=== PATIENT | male | born 1955 | race Caucasian/White ===

== ENCOUNTER 2021-04-05 13:30 | Emergency (ER) | payer OTHER, SELFPAY ==
--- NOTE | ~2021-04-05 | XR_ITS ---
XR chest 2V DATE: 04/05/2021 14:06 INDICATION: Shortness of breath and cough for 2 weeks TECHNIQUE: 2 views COMPARISON: None FINDINGS: Normal heart size. No hilar or mediastinal enlargement. No pulmonary infiltrate or consolidation, pleural effusion or pulmonary vascular congestion or pneumo thorax. Degenerative spurring of the thoracic spine. 2 anchor devices are noted at the right humeral head. IMPRESSION: No active cardiopulmonary disease Reviewed, dictated and finalized at location A.
[2021-04-05 13:43] VITALS: BP 177/95; PULSE 98; RESP 20; TEMP 37.3; O2SAT 98
--- NOTE | 2021-04-05 13:51 | ED.GENADULT ---
HPI - General Adult General Chief complaint: Upper Respiratory Infection Stated complaint: Cough,Shortness of breathe Time Seen by Provider: 04/05/21 13:50 Source: patient and RN notes reviewed Mode of arrival: ambulatory Limitations: no limitations History of Present Illness HPI narrative: 65-year-old male presents with complaints of dry cough, congestion, and intermittent shortness of breath for the past 14 days. ?Rayray reports his job sent him here to be evaluated due to the office having several outbreaks of COVID-19 and he has been constantly coughing. ?Cough medication, last prior to bed on 04/04/21 without relief. ?Constant dry cough without chest congestion. ?Rhinorrhea and nasal congestion. ?No ill exposures. Denies sore throat. ?No high fevers, drooling, neck or throat swelling. ?No chest pain or wheezing. ?No exacerbation factors. ?Denies nausea, vomiting, and abdominal pain. ?Tolerating liquids well. ?Remains active. The patient reports he has not been diagnosed with COVID-19. ?The patient reports he is not waiting for the results of a COVID-19 lab test. ?The patient reports he does not have weakness, fatigue, or myalgia. ?The patient reports he does not have any loss of taste or smell and diarrhea. ?Denies recent traveling. ?Denies concerns for COVID-19 or exposures. ?At this time, the patient is not suspected of having COVID-19.?? Some parts of this dictation were generated by voice recognition software and may contain typographical and/or grammatical inaccuracies. Related Data Home Medications Medication Instructions Recorded Confirmed atorvastatin 20 mg PO DAILY 04/05/21 04/05/21 meloxicam 7.5 mg PO DAILY 04/05/21 04/05/21 Allergies Allergy/AdvReac Type Severity Reaction Status Date / Time amlodipine Allergy Unknown Rash Verified 04/05/21 13:48 Review of Systems Review of Systems: CONSTITUTIONAL: Denies fever, chills, sweats. EYES: Denies visual changes, redness, discharge. ENT: Denies rhinorrhea, congestion, sore throat, otalgia. CARDIOVASCULAR: Denies chest pain, palpitations, edema. RESPIRATORY: Denies wheezing. Complaints of dry cough, intermittent dyspnea. GASTROINTESTINAL: Denies abdominal pain, nausea, vomiting, diarrhea. SKIN: Denies rash or itching. MUSCULOSKELETAL: Denies acute back pain, joint pain, or myalgia. NEUROLOGIC: Denies numbness or focal weakness. PSYCHIATRIC: Denies anxiety or depression. All systems reviewed & are unremarkable except as noted in HPI and below. [facility] Past Medical History Medical History (Updated 04/05/21 @ 15:32 by CARIN Barriga) Abdominal hernia Cancer prostate, treated with prostatectomy & radiation Colon polyps Hyperlipidemia Hypertension Internal hemorrhoids Surgical History Surgical History (Updated 04/05/21 @ 15:32 by CARIN Barriga) History of colonoscopy History of prostatectomy Hx of prostatectomy S/P rotator cuff repair Family History Family History Sibling Carcinoma of colon Family history of coronary artery disease Father Malignant neoplasm of prostate Carcinoma of colon Mother Family history of coronary artery disease Other Cerebrovascular accident Family history of arthritis Family history of heart disease in male family member before age 55 Social History Social History (Updated 04/05/21 @ 14:09 by CARIN Barriga) Smoking status: Never smoker Tobacco type: cigarettes Second hand tobacco smoke exposure: Yes Alcohol intake: current Substance use: never Substance use type: does not use Living arrangements: with family Occupation/Education: occupation Gender identity (if verbalized by the patient): Male Sexual Orientation (if Verbalized by the Patient): Straight or Heterosexual Comments At time of signature, agree with the nurse past medical, surgical, social, and family history. There is no relevant family hist
[2021-04-05 14:43] VITALS: BP 180/95
[2021-04-06 20:10] LABS: SARS-CoV-2 RNA PCR Negative
== END 2021-04-05 14:43 | disposition home or self-care (01) ==
PROVIDERS: Emergency Provider Nurse Practitioner Family; PCP Family Medicine
DX: J40 Bronchitis, not specified as acute or chronic (principal); Z20.822 Contact with and (suspected) exposure to COVID-19; E78.5 Hyperlipidemia, unspecified; I10 Essential (primary) hypertension; Z85.46 Personal history of malignant neoplasm of prostate; Z90.79 Acquired absence of other genital organ(s)
CPT/HCPCS: 71046; 87426; 99213; C9803; G0463; U0003; U0005

== ENCOUNTER 2021-11-27 16:49 | Outpatient (CLI) | payer OTHER, SELFPAY ==
--- NOTE | ~2021-11-27 | XR_ITS ---
EXAM: XR knee RT 3V HISTORY: M25.561 - Pain in right knee, worsening pain in the medial and posterior right knee for the last several months, unable to bend past a certain point, no known injury. COMPARISON: None available FINDINGS: Normal mineralization. Mild medial joint space narrowing. Mild tricompartmental osteoarthr itis. Quadriceps and patellar tendon enthesopathy. Vascular calcifications. No large effusion. No fra cture or dislocation. IMPRESSION: No acute osseous finding in the right knee. Degenerative changes described above. Reviewed, dictated and finalized at location K. IMPRESSION: No acute osseous finding in the right knee. Degenerative changes described daina wolff.
[2021-11-27 17:29] LABS: Alanine Aminotransferase 47 U/L (4-50); Albumin Level 4.4 g/dL (3.5-5.1); Alkaline Phosphatase 134 U/L (38-126); Anion Gap 9 mmol/L (8-16); Aspartate Amino Transferase 42 U/L (17-59); Bilirubin,Total 0.6 mg/dL (0.2-1.3); Blood Urea Nitrogen 24 mg/dL (9-20); Calcium 9.1 mg/dL (8.4-10.2); Carbon Dioxide 25 mmol/L (22-30); Chloride 104 mmol/L (98-107); Estimated Glomerular Filt Rate > 60; Glucose 120 mg/dL (65-110); Potassium 3.4 mmol/L (3.4-5.0); Sodium 138 mmol/L (137-145)
[2021-11-27 18:00] LABS: Prostate Specific Antigen < 0.1 ng/mL (< OR = 4.0)
== END 2021-11-27 16:50 | disposition home or self-care (01) ==
LOC: ANHLAB 16:53
PROVIDERS: PCP Family Medicine; Visit Provider Nurse Practitioner Family
DX: E87.6 Hypokalemia (principal); M25.561 Pain in right knee; Z85.46 Personal history of malignant neoplasm of prostate
CPT/HCPCS: 36415; 73562; 80053; 84153

== ENCOUNTER 2022-01-29 00:34 | Day surgery (SDC) | payer OTHER, SELFPAY ==
[2022-01-09 13:40] VITALS: BMI 31.8
--- NOTE | 2022-01-28 09:30 | PM.HPGS ---
History of Present Illness History of Present Illness Consent: Risks, benefits, and alternatives have been discussed and questions answered. Patient agrees to proceed with procedure. Chief complaint: family hx of colon ca, hx of colon polyps Narrative: Rayray Wilder is a 66 year old male with a family history of olon cancer in his father and brother. He has had several polyps in the past. [facility] Past Medical History Medical History Abdominal hernia Cancer prostate, treated with prostatectomy & radiation Colon polyps Hyperlipidemia Hypertension Internal hemorrhoids Obesity Surgical History Surgical History History of colonoscopy History of prostatectomy Hx of prostatectomy S/P rotator cuff repair Family History Family History Sibling Carcinoma of colon Family history of coronary artery disease Father Malignant neoplasm of prostate Carcinoma of colon Mother Family history of coronary artery disease Other Cerebrovascular accident Family history of arthritis Family history of heart disease in male family member before age 55 Social History Social History Smoking status: Never smoker Tobacco type: cigarettes Second hand tobacco smoke exposure: Yes Alcohol intake: current Drinks per week: 3 Substance use: never Substance use type: does not use Living arrangements: with family Gender identity (if verbalized by the patient): Male Sexual Orientation (if Verbalized by the Patient): Straight or Heterosexual Spiritual care concerns: No Meds Home Medications and Allergies Home Medications Medication Instructions Recorded Confirmed Type benzonatate 100 mg capsule 100 mg PO TID #60 caps 04/05/21 01/09/22 Rx atorvastatin 20 mg tablet 20 mg PO DAILY #90 tabs 04/11/21 01/09/22 Rx hydrochlorothiazide 12.5 mg tablet 12.5 mg PO DAILY #90 tabs 05/09/21 01/09/22 Rx valsartan 320 mg tablet 320 mg PO DAILY #90 tabs 08/08/21 01/09/22 Rx Allergies Allergy/AdvReac Type Severity Reaction Status Date / Time amlodipine Allergy Unknown Rash Verified 01/29/22 08:00 Exam Resp: Auscultation: clear to auscultation bilaterally Cardio: Rate: regular rate Rhythm: regular rhythm GI: GI Palp: Yes Soft to palpation and No Tenderness to palpation present (GI) Assessment and Plan Assessment and plan (1) Colon cancer screening: Code(s): Z12.11 - Encounter for screening for malignant neoplasm of colon Status: Acute Assessment and Plan: Colonoscopy with possible biopsy or polypectomy or cautery or injection of substances.
--- NOTE | 2022-01-29 07:58 | P.PNAN_ITS ---
Anes - Initial Pre Proc Eval Procedure: Operation Date: 01/29/22 09:00 Proposed Procedures p Screening Colonoscopy - Zachary Bishop MD Date/Time: 01/29/22 07:58 Surgeon: Zachary Bishop MD Pre Op Diagnosis: family hx of colon ca, hx of colon polyps Patient Data Age: 66 Gender: M Height: 1.75 m Weight: 98 kg Allergies Allergy/AdvReac Type Severity Reaction Status Date / Time amlodipine Allergy Unknown Rash Verified 01/29/22 08:00 Home Medications Medication Instructions Recorded Confirmed Type benzonatate 100 mg capsule 100 mg PO TID #60 caps 04/05/21 01/09/22 Rx atorvastatin 20 mg tablet 20 mg PO DAILY #90 tabs 04/11/21 01/09/22 Rx hydrochlorothiazide 12.5 mg tablet 12.5 mg PO DAILY #90 tabs 05/09/21 01/09/22 Rx valsartan 320 mg tablet 320 mg PO DAILY #90 tabs 08/08/21 01/09/22 Rx Patient hx anesthesia problems: none Family hx anesthesia problems: none Results Review: All pre-operative results and documents have been reviewed as part of the pre-operative evaluation. [facility] Past Medical History Medical History Abdominal hernia Cancer prostate, treated with prostatectomy & radiation Colon polyps Hyperlipidemia Hypertension Internal hemorrhoids Obesity Surgical History Surgical History History of colonoscopy History of prostatectomy Hx of prostatectomy S/P rotator cuff repair Family History Family History Sibling Carcinoma of colon Family history of coronary artery disease Father Malignant neoplasm of prostate Carcinoma of colon Mother Family history of coronary artery disease Other Cerebrovascular accident Family history of arthritis Family history of heart disease in male family member before age 55 Social History Social History Smoking status: Never smoker Tobacco type: cigarettes Second hand tobacco smoke exposure: Yes Alcohol intake: current Drinks per week: 3 Substance use: never Substance use type: does not use Living arrangements: with family Gender identity (if verbalized by the patient): Male Sexual Orientation (if Verbalized by the Patient): Straight or Heterosexual Spiritual care concerns: No Anes - Eval Final PreProcedure Day of Procedure 01/29/22 07:58 Patient weight: obese Heart: regular rate and rhythm Lungs: clear to auscultation and normal air movement Airway: Mallampati scale class II Neurological: alert and oriented Last oral intake: >/= 8 hours ASA classification: III Emergent: no Anesthetic plan: proceed Anesthesia type and monitoring: general GIVS Results Review: All pre-operative results and documents have been reviewed as part of the pre- operative evaluation. Informed Consent: The patient's anesthetic plan and its attendant risks and benefits were discussed with the patient/family/POA. Questions were solicited and answers provided to the satisfaction of the patient/family/POA.
[2022-01-29 08:01] VITALS: BP 154/92; PULSE 80; RESP 18; TEMP 36.3; O2SAT 98; BMI 30.4
[2022-01-29] MEDS: LACTATED RINGERS 1,000 ML 150 ML IV CONT (08:17)
[2022-01-29 08:49] VITALS: BP 103/63; PULSE 70; RESP 25; O2SAT 94
[2022-01-29 08:59] VITALS: BP 105/70; PULSE 65; RESP 18; O2SAT 95
[2022-01-29 09:09] VITALS: BP 126/84; PULSE 64; RESP 18; O2SAT 98
== END 2022-01-29 09:18 | disposition home or self-care (01) ==
PROVIDERS: PCP Family Medicine; Visit Provider Internal Medicine Gastroenterology
PROC: 0DJD8ZZ Inspection of Lower Intestinal Tract, Via Natural or Artificial Opening Endoscopic (ICD-10-PCS; CPT 45378; principal; 2022-01-29 09:00)
DX: Z12.11 Encounter for screening for malignant neoplasm of colon (principal); K57.30 Diverticulosis of large intestine without perforation or abscess without bleeding; K64.4 Residual hemorrhoidal skin tags; K64.8 Other hemorrhoids; K63.5 Polyp of colon; Z80.0 Family history of malignant neoplasm of digestive organs; Z85.46 Personal history of malignant neoplasm of prostate; Z92.3 Personal history of irradiation; Z90.79 Acquired absence of other genital organ(s); I10 Essential (primary) hypertension; E78.5 Hyperlipidemia, unspecified; E66.9 Obesity, unspecified; Z68.30 Body mass index [BMI] 30.0-30.9, adult
CPT/HCPCS: 45385; 45381; 88305; J2704; J7120

== ENCOUNTER 2022-12-21 09:57 | Outpatient (CLI) | payer MEDICARE, SELFPAY ==
[2022-12-21 11:05] LABS: Hematocrit 43.5 % (42.0-52.0); Hemoglobin 14.5 g/dL (14.0-18.0); Mean Corpuscular HGB Conc 33.3 g/dl (32-36); Mean Corpuscular Hemoglobin 30.2 pg (26-34); Mean Corpuscular Volume 90.6 fl (80-100); Mean Platelet Volume 9.9 fl (7.4-10.4); Platelet Count Result 323 k/mm3 (150-375); Red Cell Distribution Width 12.8 % (11.5-14.5)
[2022-12-21 11:12] LABS: Alanine Aminotransferase 75 U/L (6-50); Albumin Level 4.4 g/dL (3.5-5.1); Alkaline Phosphatase 104 U/L (38-126); Anion Gap 9 mmol/L (8-16); Aspartate Amino Transferase 48 U/L (17-59); Bilirubin,Total 0.7 mg/dL (0.2-1.3); Blood Urea Nitrogen 17 mg/dL (9-20); Calcium 8.7 mg/dL (8.4-10.2); Carbon Dioxide 28 mmol/L (22-30); Chloride 103 mmol/L (98-107); Cholesterol 242 mg/dL (0-200); Estimated Glomerular Filt Rate > 60; Glucose 98 mg/dL (65-110); HDL Direct 35 mg/dL; Potassium 3.6 mmol/L (3.4-5.0); Sodium 140 mmol/L (137-145); Triglycerides 221 mg/dL (<150)
[2022-12-21 11:23] LABS: LDL Cholesterol Direct 160 mg/dL
[2022-12-21 11:34] LABS: Appearance Urine Cloudy (Clear); Bacteria Urine None Seen /hpf; Bilirubin Urine Negative (Negative); Blood Urine Negative (Negative); Color Urine Dark Yellow (Yellow); Glucose Urine UA Negative (Negative); Ketones Urine Trace mg/dL (Negative); Leukocyte Esterase Ur Negative LEU/UL (NEGATIVE); Need Manual Microscopic Reviewed; Nitrate Urine Negative (Negative); Protein Urine Trace mg/dL (Negative); RBC Urine 0-2 /hpf (0-2); Specific Grav Ur 1.025 (1.001-1.035); Squamous Epithelial Cell Urine Occasional /hpf (Few); WBC Urine 0-5 /hpf (0-3); pH Urine 5.5 (5.0-9.0)
[2022-12-21 11:36] LABS: Add Urine Microscopic? YES
== END 2022-12-21 09:58 | disposition home or self-care (01) ==
PROVIDERS: PCP Family Medicine; Visit Provider Physician Assistant
DX: C80.1 Malignant (primary) neoplasm, unspecified (principal); E78.5 Hyperlipidemia, unspecified; I10 Essential (primary) hypertension; Z85.46 Personal history of malignant neoplasm of prostate; E66.9 Obesity, unspecified
CPT/HCPCS: 36415; 80053; 80061; 81001; 84443; 85027

== ENCOUNTER 2024-02-13 12:09 | Outpatient (CLI) | payer MEDICARE, SELFPAY ==
[2024-02-13 13:00] LABS: Basophils Absolute Auto 0.1 K/mm3 (0.0-0.1); Basophils Percent Auto 0.9 % (0.2-1.2); Eosinophils Absolute Auto 0.1 K/mm3 (0-0.3); Eosinophils Percent Auto 1.7 % (0-4.4); Hematocrit 44.4 % (42.0-52.0); Hemoglobin 14.7 g/dL (14.0-18.0); Immature Granulocyte Absolute 0.02 K/mm3 (0.00-0.031); Immature Granulocyte Percent A 0.2 % (0-0.5); Lymphocytes Absolute Auto 1.53 K/mm3 (0.9-3.2); Lymphocytes Percent Auto 18.8 % (18.3-44.2); Mean Corpuscular HGB Conc 33.1 g/dl (32-36); Mean Corpuscular Hemoglobin 29.4 pg (26-34); Mean Corpuscular Volume 88.8 fl (80-100); Mean Platelet Volume 9.7 fl (7.4-10.4); Monocytes Absolute Auto 0.8 K/mm3 (0.1-0.6); Monocytes Percent Auto 10.1 % (2.6-8.5); Neutrophils Absolute Auto 5.6 K/mm3 (1.3-6.7); Neutrophils Percent Auto 68.3 % (45.5-73.1); Platelet Count Result 310 k/mm3 (150-375); Red Cell Distribution Width 12.7 % (11.5-14.5); White Blood Count 8.2 K/mm3 (4.5-10.0)
[2024-02-13 13:44] LABS: Alanine Aminotransferase 42 U/L (6-50); Albumin Level 4.4 g/dL (3.5-5.1); Alkaline Phosphatase 128 U/L (38-126); Anion Gap 9 mmol/L (4-12); Aspartate Amino Transferase 37 U/L (17-59); Bilirubin,Total 0.7 mg/dL (0.2-1.3); Blood Urea Nitrogen 19 mg/dL (9-20); Carbon Dioxide 26 mmol/L (22-30); Chloride 106 mmol/L (98-107); Cholesterol 205 mg/dL (0-200); Estimated Glomerular Filt Rate > 60; Glucose 103 mg/dL (65-110); HDL Direct 46 mg/dL; Sodium 141 mmol/L (137-145); Triglycerides 206 mg/dL (<150)
[2024-02-13 13:55] LABS: LDL Cholesterol Direct 124 mg/dL
[2024-02-13 14:12] LABS: Hemoglobin A1C 5.5 % (<5.7)
[2024-02-13 14:15] LABS: Prostate Specific Antigen < 0.1 ng/mL (< OR = 4.0)
[2024-02-13 15:17] LABS: Appearance Urine Cloudy (Clear); Bacteria Urine None Seen /hpf; Bilirubin Urine 1+ (Negative); Blood Urine Negative (Negative); Color Urine Dark Yellow (Yellow); Glucose Urine UA Negative (Negative); Ketones Urine Trace mg/dL (Negative); Leukocyte Esterase Ur Negative LEU/UL (Negative); Mucus Urine Present /lpf; Need Manual Microscopic Reviewed; Nitrate Urine Negative (Negative); Non Pathogenic Casts >20; Protein Urine 1+ mg/dL (Negative); RBC Urine 0-2 /hpf (0-2); Squamous Epithelial Cell Urine Occasional /hpf (Few); WBC Urine 0-5 /hpf (0-3)
[2024-02-13 15:34] LABS: Add Urine Microscopic? YES; Specific Grav Ur 1.038 (1.001-1.035)
== END 2024-02-13 12:10 | disposition home or self-care (01) ==
PROVIDERS: PCP Family Medicine; Visit Provider Physician Assistant Medical
DX: E78.5 Hyperlipidemia, unspecified (principal); I10 Essential (primary) hypertension; E66.9 Obesity, unspecified; R73.01 Impaired fasting glucose; Z85.46 Personal history of malignant neoplasm of prostate; Z12.5 Encounter for screening for malignant neoplasm of prostate
CPT/HCPCS: 36415; 80053; 80061; 81001; 83036; 84153; 84443; 85025

== ENCOUNTER 2025-05-21 09:13 | Outpatient (CLI) | payer MEDICARE, SELFPAY ==
--- OUTSIDE RECORDS SUMMARY | 2025-05-21 09:23 | XMS_ITS | Encounter Summary ---
Author Organization [facility] Address [address] [place] [address] Care Team Providers Care Stitcher Feeder Name Role Phone Reese Walker MD Primary Care Provider [phone] Encounter Details Date Type Department Care Team (Latest Contact Info) Description 05/01/2007 Outpatient Historical HIS [facility] Hernandez, Reese Kamara MD NO ADDRESS ON FILE Unspecified Osteomyelitis, Hand (CMS/[facility]) (Primary Dx) Social History Tobacco Use Types Packs/Day Years Used Date Smoking Tobacco: Never Assessed Sex and Gender Information Value Date Recorded Sex Assigned at Not on file Legal Sex Male 3:59 AM HEAD RESIDENT Gender Identity Not on file Sexual Orientation Not on file documented as of this encounter Plan of Treatment Not on file documented as of this encounter Procedures Procedure Name Priority Date/Time Associated Diagnosis Comments CBC WITH DIFFERENTIAL Routine 05/01/2007 2:01 PM CDT CBC WITH DIFFERENTIAL Routine 05/01/2007 2:01 PM CDT COMPREHENSIVE METABOLIC PANEL Routine 05/01/2007 2:01 PM CDT documented in this encounter Results * CBC WITH DIFFERENTIAL (05/01/2007 2:01 PM CDT) NEUTROPHILS 54 45 - 70 % INTERFAC E SYSTEM LYMPHOCYTES 30 16 - 45 % INTERFAC E SYSTEM MONOCYTES 12 3 - 13 % INTERFACE SYSTEM EOSINOPHILS 3 0 - 7 % INTERFAC E SYSTEM BASOPHILS 1 0 - 2 % INTERFACE SYSTEM NEUTROPHIL ABSOLUTE 3.20 1.90 - 7.00 K/uL INTERFACE SYSTEM LYMPHOCYTE ABSOLUTE 1.79 0.70 - 4.50 K/uL INTERFACE SYSTEM MONOCYTE ABSOLUTE 0.72 0.10 - 1.30 K/uL INTERFACE SYSTEM EOSINOPHIL ABSOLUTE 0.20 0.00 - 0.70 K/uL INTERFACE SYSTEM BASOPHILS ABSOLUTE 0.03 0.00 - 0.20 K/uL INTERFACE SYSTEM 05/01/2007 2:01 PM CDT Reese Hernandez MD HEMATOLOGY ORDERABLES Edit ed Performing Organization Address [facility] de Phone Number INTERFACE SYSTEM Refer to clinic/hospital department * (ABNORMAL) CBC WITH DIFFERENTIAL (05/01/2007 2:01 PM CDT) WBC 5.9 4.0 - 9.8 K/uL INTERFACE SYSTEM RBC 4.69 4.50 - 5.40 M/uL INTERFACE SYSTEM HEMOGLOBIN 13.6 13.6 - 16.5 g/dL INTERFACE SYSTEM HEMATOCRIT 39.3(L) 40.0 - 48.0 % INTERFACE SYSTEM MCV 83.8 82.0 - 99.0 fL INTERFACE SYSTEM MCH 29.0 27.2 - 32.6 pg INTERFACE SYSTEM MCHC 34.6 31.5 - 35.5 % INTERFACE SYSTEM RDW 12.5 11.5 - 14.5 % INTERFACE SYSTEM RDW-STDEV 37.6 37.1 - 48.7 fL INTERFACE SYSTEM PLATELETS 266 140 - 350 K/uL INTERFACE SYSTEM MPV 10.0 9.3 - 12.4 fL INTERFACE SYSTEM 05/01/2007 2:01 PM CDT Reese Hernandez MD HEMATOLOGY ORDERABLES Edit ed Performing Organization Address [facility] Phone Number INTERFACE SYSTEM Refer to clinic/hospital department * (ABNORMAL) COMPREHENSIVE METABOLIC PANEL (05/01/2007 2:01 PM CDT) GLUCOSE 115(H) 65 - 99 mg/dL INTERFACE SYSTEM CREATININE 0.98 0.67 - 1.17 mg/dL INTERFACE SYSTEM CALCIUM 9.0 8.4 - 10.2 mg/dL INTERFACE SYSTEM ALKALINE PHOSPHATASE 82 40 - 129 U/L INTERFACE SYSTEM AST 28 12 - 38 U/L INTERFACE SYSTEM ALT 36 0 - 41 U/L INTERFACE SYSTEM TOTAL PROTEIN 7.5 6.3 - 8.6 g/dL INTERFACE SYSTEM ALBUMIN 4.4 3.4 - 4.8 g/dL INTERFACE SYSTEM BILIRUBIN TOTAL 0.5 0.2 - 1.0 mg/dL INTERFACE SYSTEM BUN 10 6 - 20 mg/dL INTERFACE SYSTEM SODIUM 141 135 - 145 mmol/L INTERFACE SYSTEM POTASSIUM 3.6 3.5 - 4.9 mmol/L INTERFACE SYSTEM CHLORIDE 102 96 - 108 mmol/L INTERFACE SYSTEM CO2 29 22 - 30 mmol/L INTERFACE SYSTEM GFR, >60 >=60 mL/min/1. 7 sq meter INTERFACE SYSTEM GFR >60 >=60 mL/min/1. 7 sq meter INTERFACE SYSTEM Comment: Estimated GFR rate interpretative information for both Americans and non- Americans is available on the [facility] Intranet at: [email or web address] Select: Lab Policies and Procedures Select: Reference Ranges - GFR 05/01/2007 2:01 PM CDT Reese Hernandez MD CHEMISTRY ORDERABLES Edite d INTERFACE SYSTEM Refer to clinic/hospital department documented in this encounter Visit Diagnoses Diagnosis Unspecified osteomyelitis, hand (CMS/HCC)- Primary Unspecified osteomyelitis, hand documented in this encounter Care Teams Stitcher Feeder Relationship Specialty Start Date End Date Reese Walker MD [address] [id number] PCP - General 01/31/07 05/13/14 documented as of this encounter
--- OUTSIDE RECORDS SUMMARY | 2025-05-21 09:23 | XMS_ITS | Clinical Summary ---
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
--- OUTSIDE RECORDS SUMMARY | 2025-05-21 09:23 | XMS_ITS | Encounter Summary ---
Author Organization [facility] Address [address] [place] [address] Care Team Providers Care Automobile Technician Name Role Phone Reese Walker MD Primary Care Provider [phone] Encounter Details Date Type Department Care Team (Latest Contact Info) Description 07/24/2007 Outpatient Historical HIS [facility] Hernandez, Reese Kamara MD NO ADDRESS ON FILE Unspecified Osteomyelitis, Hand (CMS/[facility]) (Primary Dx) Social History Tobacco Use Types Packs/Day Years Used Date Smoking Tobacco: Never Assessed Sex and Gender Information Value Date Recorded Sex Assigned at Not on file Legal Sex Male 3:59 AM MIDWIFE PRACTITIONER Gender Identity Not on file Sexual Orientation Not on file documented as of this encounter Plan of Treatment Not on file documented as of this encounter Procedures Procedure Name Priority Date/Time Associated Diagnosis Comments CBC WITH DIFFERENTIAL Routine 07/24/2007 1:11 PM MIDWIFE PRACTITIONER CBC WITH DIFFERENTIAL Routine 07/24/2007 1:11 PM MIDWIFE PRACTITIONER COMPREHENSIVE METABOLIC PANEL Routine 07/24/2007 1:11 PM MIDWIFE PRACTITIONER documented in this encounter Results * CBC WITH DIFFERENTIAL (07/24/2007 1:11 PM MIDWIFE PRACTITIONER) NEUTROPHILS 56 45 - 70 % INTERFAC E SYSTEM LYMPHOCYTES 28 16 - 45 % INTERFAC E SYSTEM MONOCYTES 13 3 - 13 % INTERFACE SYSTEM EOSINOPHILS 3 0 - 7 % INTERFAC E SYSTEM BASOPHILS 1 0 - 2 % INTERFACE SYSTEM NEUTROPHIL ABSOLUTE 4.17 1.90 - 7.00 K/uL INTERFACE SYSTEM LYMPHOCYTE ABSOLUTE 2.06 0.70 - 4.50 K/uL INTERFACE SYSTEM MONOCYTE ABSOLUTE 0.95 0.10 - 1.30 K/uL INTERFACE SYSTEM EOSINOPHIL ABSOLUTE 0.23 0.00 - 0.70 K/uL INTERFACE SYSTEM BASOPHILS ABSOLUTE 0.04 0.00 - 0.20 K/uL INTERFACE SYSTEM 07/24/2007 1:11 PM MIDWIFE PRACTITIONER Reese Hernandez MD HEMATOLOGY ORDERABLES Edit ed Performing Organization Address [facility] Phone Number INTERFACE SYSTEM Refer to clinic/hospital department * CBC WITH DIFFERENTIAL (07/24/2007 1:11 PM MIDWIFE PRACTITIONER) WBC 7.5 4.0 - 9.8 K/uL INTERFACE SYSTEM RBC 4.79 4.50 - 5.40 M/uL INTERFACE SYSTEM HEMOGLOBIN 14.2 13.6 - 16.5 g/dL INTERFACE SYSTEM HEMATOCRIT 41.5 40.0 - 48.0 % INTERFACE SYSTEM MCV 86.6 82.0 - 99.0 fL INTERFACE SYSTEM MCH 29.6 27.2 - 32.6 pg INTERFACE SYSTEM MCHC 34.2 31.5 - 35.5 % INTERFACE SYSTEM RDW 12.8 11.5 - 14.5 % INTERFACE SYSTEM RDW-STDEV 40.8 37.1 - 48.7 fL INTERFACE SYSTEM PLATELETS 315 140 - 350 K/uL INTERFACE SYSTEM MPV 10.6 9.3 - 12.4 fL INTERFACE SYSTEM 07/24/2007 1:11 PM MIDWIFE PRACTITIONER Reese Hernandez MD HEMATOLOGY ORDERABLES Edit ed Performing Organization Address [facility] Phone Number INTERFACE SYSTEM Refer to clinic/hospital department * (ABNORMAL) COMPREHENSIVE METABOLIC PANEL (07/24/2007 1:11 PM MIDWIFE PRACTITIONER) GLUCOSE 87 65 - 99 mg/dL INTERFACE SYSTEM CREATININE 0.96 0.67 - 1.17 mg/dL INTERFACE SYSTEM CALCIUM 8.3(L) 8.4 - 10.2 mg/dL INTERFACE SYSTEM ALKALINE PHOSPHATASE 89 40 - 129 U/L INTERFACE SYSTEM AST 27 12 - 38 U/L INTERFACE SYSTEM ALT 32 0 - 41 U/L INTERFACE SYSTEM TOTAL PROTEIN 7.1 6.3 - 8.6 g/dL INTERFACE SYSTEM ALBUMIN 4.0 3.4 - 4.8 g/dL INTERFACE SYSTEM BILIRUBIN TOTAL 0.4 0.2 - 1.0 mg/dL INTERFACE SYSTEM BUN 16 6 - 20 mg/dL INTERFACE SYSTEM SODIUM 140 135 - 145 mmol/L INTERFACE SYSTEM POTASSIUM 3.4(L) 3.5 - 4.9 mmol/L INTERFACE SYSTEM CHLORIDE 104 96 - 108 mmol/L INTERFACE SYSTEM CO2 26 22 - 30 mmol/L INTERFACE SYSTEM GFR, >60 >=60 mL/min/1. 7 sq meter INTERFACE SYSTEM GFR >60 >=60 mL/min/1. 7 sq meter INTERFACE SYSTEM Comment: Estimated GFR rate interpretative information for both Americans and non- Americans is available on the [facility] Intranet at: [email or web address] Select: Lab Policies and Procedures Select: Reference Ranges - GFR 07/24/2007 1:11 PM MIDWIFE PRACTITIONER Reese Hernandez MD CHEMISTRY ORDERABLES Edite d INTERFACE SYSTEM Refer to clinic/hospital department documented in this encounter Visit Diagnoses Diagnosis Unspecified osteomyelitis, hand (CMS/[facility])- Primary Unspecified osteomyelitis, hand documented in this encounter Care Teams Automobile Technician Relationship Specialty Start Date End Date Reese Walker MD [address] [address] PCP - General 01/31/07 05/13/14 documented as of this encounter
--- OUTSIDE RECORDS SUMMARY | 2025-05-21 09:23 | XMS_ITS | Clinical Summary ---
Author Organization [facility] Address [address], [address] [address] Phone Care Team Providers Care Hand Assembler For Puller Over Name Role Phone Yung Man MD Primary Care Provider Rayray Simmons DO Unavailable [phone] Allergies No known active allergies Medications atorvastatin (LIPITOR) 20 MG Tablet Take 20 mg by mouth daily. Active diclofenac (VOLTAREN) 75 MG Tablet Delayed Response Take 75 mg by mouth 2 times daily. Active losartan (COZAAR) 25 MG Tablet Take 25 mg by mouth daily. Active chlorthalidone (HYGROTON) 25 MG Tablet Take 25 mg by mouth daily. Active Family History Medical History Relation Name Comments Colon Cancer Brother Heart Attack Brother Colon Cancer Father Heart Disease Mother Relation Name Status Comments Brother Father Mother Social History Tobacco Use Types Packs/Day Years Used Date Smoking Tobacco: Never Smokeless Tobacco: Never Alcohol Use Standard Drinks/Week Comments Yes 0 (1 standard drink = 0.6 oz pur e alcohol) Sex and Gender Information Value Date Recorded Sex Assigned at Not on file Legal Sex Male 7:42 PM CDT Gender Identity Not on file Sexual Orientation Not on file Plan of Treatment Health Maintenance Due Date Last Done Comments Hepatitis C Virus (HCV) Screening 1955 TdaP Immunization 1955 Cologuard 2000 Immunochemical Fecal Occult Blood 2000 Pneumococcal Immunization (5 0+ years) (1 of 1 - PCV) 2005 Zoster Immunization (1 of 2) 2005 Colonoscopy 07/02/2022 07/02/2019, 04/04/2016 Colorectal Cancer Screening 07/02/2022 SARS-COV-2 Immunization (1 - 2023- season) 2024 Influenza Immunization (#1) 2025 Respiratory Syncytial Virus (RSV) Immunization (Adult) (1 - 1-dose 75+ series) 2030 Hepatitis B Immunization Aged Out No longer eligible based on patient's age to complete this topic Human Papillomavirus (HPV) Immunization Aged Out No longer eligible b ased on patient's age to complete this topic Meningococcal Immunization (ACWY) Aged Out No longer eligible b ased on patient's age to complete this topic Rotavirus Immunization Aged Out No lo nger eligible based on patient's age to complete this topic Procedures Procedure Name Priority Date/Time Associated Diagnosis Comments COLONOSCOPY Routine 07/02/2019 from Last 3 Months or Most Recently Relevant to Health Maintenance Results * COLONOSCOPY (07/02/2019) Rayray Simmons DO PROCEDURE/MINOR SURGICAL ORDERA BLES Final Result from Last 3 Months or Most Recently Relevant to Health Maintenance Care Teams Hand Assembler For Puller Over Relationship Specialty Start Date End Date Yung Man MD [address] [place] [address] PCP - General Family Medicine 01/26/16 Rayray Simmons DO [address] [place] [address] Gastroenterology 04/13/16
--- OUTSIDE RECORDS SUMMARY | 2025-05-21 09:23 | XMS_ITS | Encounter Summary ---
Author Organization [employer] Address [address] [place] [address] Care Team Providers Care Commanding Officer Garage Name Role Phone Reese Walker MD Primary Care Provider [phone] Encounter Details Date Type Department Care Team (Late st Contact Info) Description 01/31/2007 Inpatient Historical [facility] Jose Singh MD NO ADDRESS ON FILE Reese Hernandez MD NO ADDRESS ON FILE Unspecified Osteomyelitis, Hand (CMS/HCC) (Primary Dx) Social History Tobacco Use Types Packs/Day Years Used Date Smoking Tobacco: Never Assessed Sex and Gender Information Value Date Recorded Sex Assigned at Not on file Legal Sex Male 3:59 AM TRANSITIONAL CARE LIAISON Gender Identity Not on file Sexual Orientation Not on file documented as of this encounter Plan of Treatment Not on file documented as of this encounter Visit Diagnoses Diagnosis Unspecified osteomyelitis, hand (CMS/HCC)- Primary Unspecified osteomyelitis, hand documented in this encounter Care Teams Commanding Officer Garage Relationship Specialty Start Date End Date Reese Walker MD [address] [place] [address] [address] [place] [address] PCP - General 01/31/07 05/13/14 documented as of this encounter
[2025-05-21 09:57] LABS: Hematocrit 43.5 % (42.0-52.0); Hemoglobin 14.6 g/dL (14.0-18.0); Mean Corpuscular HGB Conc 33.6 g/dl (32-36); Mean Corpuscular Hemoglobin 29.4 pg (26-34); Mean Corpuscular Volume 87.7 fl (80-100); Platelet Count Result 359 k/mm3 (150-375); Red Blood Count 4.96 M/mm3 (4.6-6.20); White Blood Count 8.7 K/mm3 (4.5-10.0)
[2025-05-21 09:59] LABS: Add Urine Microscopic? NO; Appearance Urine Clear (Clear); Glucose Urine UA Negative (Negative); Leukocyte Esterase Ur Negative LEU/UL (Negative); Nitrate Urine Negative (Negative); Specific Grav Ur 1.019 (1.001-1.035)
[2025-05-21 10:06] LABS: Hemoglobin A1C 5.6 % (<5.7)
[2025-05-21 10:09] LABS: Alanine Aminotransferase 32 U/L (6-50); Albumin Level 4.3 g/dL (3.5-5.1); Alkaline Phosphatase 146 U/L (38-126); Anion Gap 11 mmol/L (4-12); Aspartate Amino Transferase 36 U/L (17-59); Bilirubin,Total 0.6 mg/dL (0.2-1.3); Blood Urea Nitrogen 18 mg/dL (9-20); Calcium 9.1 mg/dL (8.4-10.2); Carbon Dioxide 25 mmol/L (22-30); Chloride 105 mmol/L (98-107); Cholesterol 185 mg/dL (0-200); Estimated Glomerular Filt Rate > 60; Glucose 112 mg/dL (65-110); HDL Direct 43 mg/dL; Potassium 4.3 mmol/L (3.4-5.0); Sodium 141 mmol/L (137-145); Total Protein 8.1 g/dL (6.3-8.2); Triglycerides 230 mg/dL (<150)
[2025-05-21 10:45] LABS: Thyroid Stimulating Hormone 3.660 uIU/mL (0.465-4.680)
[2025-05-21 17:24] LABS: Prostate Specific Antigen 0.1 ng/mL (< OR = 4.0)
== END 2025-05-21 09:14 | disposition home or self-care (01) ==
PROVIDERS: PCP Family Medicine; Visit Provider Physician Assistant
DX: E78.5 Hyperlipidemia, unspecified (principal); I10 Essential (primary) hypertension; R73.01 Impaired fasting glucose; Z85.46 Personal history of malignant neoplasm of prostate; Z12.5 Encounter for screening for malignant neoplasm of prostate
CPT/HCPCS: 36415; 80053; 80061; 81003; 83036; 84153; 84443; 85027

== ENCOUNTER 2025-05-26 07:38 | Outpatient (CLI) | payer MEDICARE, SELFPAY ==
--- OUTSIDE RECORDS SUMMARY | 2025-05-26 07:41 | XMS_ITS | Encounter Summary ---
Author Organization [employer] Address 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
--- OUTSIDE RECORDS SUMMARY | 2025-05-26 07:41 | XMS_ITS | Clinical Summary ---
Author Organization [facility] Address [address], [address] [address] Phone Care Team Providers Care Sheriff Detective Name Role Phone Yung Man MD Primary Care Provider Rayray Simmons DO Unavailable [phone] Allergies No known active allergies Medications [...] 07/02/2022 07/02/2019, 04/04/2016 Colorectal Cancer Screening 07/02/2022 Influenza Immunization (#1) 2025 SARS-COV-2 Immunization (1 - season) 2025 Respiratory Syncytial Virus (RSV) Immunization (Adult) [...] Recently Relevant to Health Maintenance Care Teams Sheriff Detective Relationship Specialty Start Date End Date Yung Man MD [address] [place] [address] PCP - General Family Medicine 01/26/16 Rayray Simmons DO [address] [place] [address] Gastroenterology 04/13/16
--- OUTSIDE RECORDS SUMMARY | 2025-05-26 07:41 | XMS_ITS | Clinical Summary ---
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
--- OUTSIDE RECORDS SUMMARY | 2025-05-26 07:41 | XMS_ITS | Encounter Summary ---
Author Organization [facility] Address [address] [place] [address] Care Team Providers Care Vocal Teacher Name Role Phone Reese Walker MD Primary Care Provider [phone] Encounter Details Date Type Department Care Team (Latest Contact Info) Description 07/24/2007 Outpatient Historical [facility] Hernandez, Reese Kamara MD NO ADDRESS ON FILE Unspecified Osteomyelitis, Hand (CMS/[facility]) (Primary Dx) Social History Tobacco Use Types Packs/Day Years Used Date Smoking Tobacco: Never Assessed Sex and Gender Information Value Date Recorded Sex Assigned at Not on file Legal Sex Male 3:59 AM FISHER LAMPARA NET Gender Identity Not on file Sexual Orientation Not on file documented as of this encounter Plan of Treatment Not on file documented as of this encounter Procedures Procedure Name Priority Date/Time Associated Diagnosis Comments CBC WITH DIFFERENTIAL Routine 07/24/2007 1:11 PM FISHER LAMPARA NET CBC WITH DIFFERENTIAL Routine 07/24/2007 1:11 PM FISHER LAMPARA NET COMPREHENSIVE METABOLIC PANEL Routine 07/24/2007 1:11 PM FISHER LAMPARA NET documented in this encounter Results * CBC WITH DIFFERENTIAL (07/24/2007 1:11 PM FISHER LAMPARA NET) NEUTROPHILS 56 45 - 70 % INTERFAC [...] 0.20 K/uL INTERFACE SYSTEM 07/24/2007 1:11 PM FISHER LAMPARA NET Reese Hernandez MD HEMATOLOGY ORDERABLES Edit ed Performing Organization Address [facility] Phone Number INTERFACE SYSTEM Refer to clinic/hospital department * CBC WITH DIFFERENTIAL (07/24/2007 1:11 PM FISHER LAMPARA NET) WBC 7.5 4.0 - 9.8 K/uL INTERFACE [...] 12.4 fL INTERFACE SYSTEM 07/24/2007 1:11 PM FISHER LAMPARA NET Reese Hernandez MD HEMATOLOGY ORDERABLES Edit ed Performing Organization Address [facility] Phone Number INTERFACE SYSTEM Refer to clinic/hospital department * (ABNORMAL) COMPREHENSIVE METABOLIC PANEL (07/24/2007 1:11 PM FISHER LAMPARA NET) GLUCOSE 87 65 - 99 mg/dL INTERFACE [...] and non- Americans is available on the [facility] Intranet at: [email or web address] Select: Lab Policies and Procedures Select: Reference Ranges - GFR 07/24/2007 1:11 PM FISHER LAMPARA NET Reese Hernandez MD CHEMISTRY ORDERABLES Edite d INTERFACE SYSTEM Refer to clinic/hospital department documented in this encounter Visit Diagnoses Diagnosis Unspecified osteomyelitis, hand (CMS/[facility])- Primary Unspecified osteomyelitis, hand documented in this encounter Care Teams Vocal Teacher Relationship Specialty Start Date End Date Reese Walker MD [address] [address] PCP - General 01/31/07 05/13/14 documented as of this encounter
--- OUTSIDE RECORDS SUMMARY | 2025-05-26 07:41 | XMS_ITS | Encounter Summary ---
Author Organization [facility] Address 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 Gender Identity Not on file Sexual Orientation [...] HEMATOLOGY ORDERABLES Edit ed Performing Organization Address [facility] de Phone Number INTERFACE SYSTEM Refer [...] HEMATOLOGY ORDERABLES Edit ed Performing Organization Address [facility] Phone Number INTERFACE SYSTEM Refer to [...] and non- Americans is available on the [facility] Intranet at: [email or web address] Select: Lab Policies and Procedures Select: Reference Ranges - GFR 05/01/2007 2:01 PM CDT Reese Hernandez MD CHEMISTRY ORDERABLES Edite d INTERFACE SYSTEM Refer to clinic/hospital department documented in this encounter Visit Diagnoses Diagnosis Unspecified osteomyelitis, hand (CMS/HCC)- Primary Unspecified osteomyelitis, hand documented in this encounter Care Teams Sql Ssrs Developer Relationship Specialty Start Date End Date Reese Walker MD [address] [id number] PCP - General 01/31/07 05/13/14 documented as of this encounter
[2025-05-26 08:13] LABS: Alanine Aminotransferase 34 U/L (6-50); Albumin Level 4.0 g/dL (3.5-5.1); Alkaline Phosphatase 144 U/L (38-126); Anion Gap 10 mmol/L (4-12); Aspartate Amino Transferase 33 U/L (17-59); Bilirubin,Total 0.5 mg/dL (0.2-1.3); Blood Urea Nitrogen 17 mg/dL (9-20); Calcium 8.7 mg/dL (8.4-10.2); Carbon Dioxide 26 mmol/L (22-30); Chloride 105 mmol/L (98-107); Estimated Glomerular Filt Rate > 60; Glucose 114 mg/dL (65-110); Potassium 3.8 mmol/L (3.4-5.0); Sodium 141 mmol/L (137-145); Total Protein 7.5 g/dL (6.3-8.2)
[2025-05-27 07:09] LABS: GGT 23 IU/L (0-65)
== END 2025-05-26 07:39 | disposition home or self-care (01) ==
PROVIDERS: PCP Family Medicine; Visit Provider Physician Assistant
DX: R74.8 Abnormal levels of other serum enzymes (principal)
CPT/HCPCS: 36415; 80053; 82977

== ENCOUNTER 2025-07-06 00:22 | Day surgery (SDC) | payer MEDICARE, SELFPAY ==
[2025-06-25 08:35] VITALS: BMI 32.5
--- OUTSIDE RECORDS SUMMARY | 2025-07-06 00:24 | XMS_ITS | Clinical Summary ---
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
--- OUTSIDE RECORDS SUMMARY | 2025-07-06 00:24 | XMS_ITS | Encounter Summary ---
Author Organization [facility] Address [address] [place] [address] Care Team Providers Care Life Care Planner Name Role Phone Reese Walker MD Primary Care Provider [phone] Encounter Details Date Type Department Care Team (Latest Contact Info) Description 07/24/2007 Outpatient Historical HIS [facility] Hernandez, Reese Kamara MD NO ADDRESS ON FILE Unspecified Osteomyelitis, Hand (CMS/[facility]) (Primary Dx) Social History Tobacco Use Types Packs/Day Years Used Date Smoking Tobacco: Never Assessed Sex and Gender Information Value Date Recorded Sex Assigned at Not on file Legal Sex Male 3:59 AM ICT DEVELOPER Gender Identity Not on file Sexual Orientation Not on file documented as of this encounter Plan of Treatment Not on file documented as of this encounter Procedures Procedure Name Priority Date/Time Associated Diagnosis Comments CBC WITH DIFFERENTIAL Routine 07/24/2007 1:11 PM ICT DEVELOPER CBC WITH DIFFERENTIAL Routine 07/24/2007 1:11 PM ICT DEVELOPER COMPREHENSIVE METABOLIC PANEL Routine 07/24/2007 1:11 PM ICT DEVELOPER documented in this encounter Results * CBC WITH DIFFERENTIAL (07/24/2007 1:11 PM ICT DEVELOPER) NEUTROPHILS 56 45 - 70 % INTERFAC [...] 0.20 K/uL INTERFACE SYSTEM 07/24/2007 1:11 PM ICT DEVELOPER Reese Hernandez MD HEMATOLOGY ORDERABLES Edit ed Performing Organization Address [facility] Phone Number INTERFACE SYSTEM Refer to clinic/hospital department * CBC WITH DIFFERENTIAL (07/24/2007 1:11 PM ICT DEVELOPER) WBC 7.5 4.0 - 9.8 K/uL INTERFACE [...] 12.4 fL INTERFACE SYSTEM 07/24/2007 1:11 PM ICT DEVELOPER Reese Hernandez MD HEMATOLOGY ORDERABLES Edit ed Performing Organization Address [facility] Phone Number INTERFACE SYSTEM Refer to clinic/hospital department * (ABNORMAL) COMPREHENSIVE METABOLIC PANEL (07/24/2007 1:11 PM ICT DEVELOPER) GLUCOSE 87 65 - 99 mg/dL INTERFACE [...] and non- Americans is available on the [facility] Intranet at: [email or web address] Select: Lab Policies and Procedures Select: Reference Ranges - GFR 07/24/2007 1:11 PM ICT DEVELOPER Reese Hernandez MD CHEMISTRY ORDERABLES Edite d INTERFACE SYSTEM Refer to clinic/hospital department documented in this encounter Visit Diagnoses Diagnosis Unspecified osteomyelitis, hand (CMS/[facility])- Primary Unspecified osteomyelitis, hand documented in this encounter Care Teams Life Care Planner Relationship Specialty Start Date End Date Reese Walker MD [address] [address] PCP - General 01/31/07 05/13/14 documented as of this encounter
--- OUTSIDE RECORDS SUMMARY | 2025-07-06 00:24 | XMS_ITS | Encounter Summary ---
Author Organization [employer] Address 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
--- OUTSIDE RECORDS SUMMARY | 2025-07-06 00:24 | XMS_ITS | Encounter Summary ---
Author Organization [facility] Address [address] [place] [address] Care Team Providers Care Button Tufting Machine Operator Name Role Phone Reese Walker MD Primary Care Provider [phone] Encounter Details Date Type Department Care Team (Latest Contact Info) Description 05/01/2007 Outpatient Historical HIS [facility] Hernandez, Reese Kamara MD NO ADDRESS ON FILE Unspecified Osteomyelitis, Hand (CMS/[facility]) (Primary Dx) Social History Tobacco Use Types Packs/Day Years Used Date Smoking Tobacco: Never Assessed Sex and Gender Information Value Date Recorded Sex Assigned at Not on file Legal Sex Male 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 Gender Identity Not on file Sexual Orientation [...] HEMATOLOGY ORDERABLES Edit ed Performing Organization Address [facility] de Phone Number INTERFACE SYSTEM Refer to [...] HEMATOLOGY ORDERABLES Edit ed Performing Organization Address [facility] Phone Number INTERFACE SYSTEM Refer to [...] is available on the [facility] Intranet at: [email or web address] Select: Lab Policies and Procedures Select: Reference Ranges - GFR 05/01/2007 2:01 PM CDT Reese Hernandez MD CHEMISTRY ORDERABLES Edite d INTERFACE SYSTEM Refer to clinic/hospital department documented in this encounter Visit Diagnoses Diagnosis Unspecified osteomyelitis, hand (CMS/HCC)- Primary Unspecified osteomyelitis, hand documented in this encounter Care Teams Button Tufting Machine Operator Relationship Specialty Start Date End Date Reese Walker MD [address] [phone] PCP - General 01/31/07 05/13/14 documented as of this encounter
--- OUTSIDE RECORDS SUMMARY | 2025-07-06 00:24 | XMS_ITS | Clinical Summary ---
Author Organization [facility] Address [address], [address] [address] Phone Care Team Providers Care Petroleum Geology Faculty Member Name Role Phone Yung Man MD Primary Care Provider Rayray Simmons DO Unavailable [phone] Allergies No known active allergies Medications [...] Recently Relevant to Health Maintenance Care Teams Petroleum Geology Faculty Member Relationship Specialty Start Date End Date Yung Man MD [address] [place] [address] PCP - General Family Medicine 01/26/16 Rayray Simmons DO [address] [place] [address] Gastroenterology 04/13/16
[2025-07-06 11:23] VITALS: BP 168/82; PULSE 95; RESP 19; TEMP 36.5; O2SAT 97
[2025-07-06] MEDS: LACTATED RINGERS 1,000 ML 150 ML IV CONT (11:34)
--- NOTE | 2025-07-06 11:57 | WPDANESEPPF ---
Anes - Initial Pre Proc Eval Procedure: Operation Date: 07/06/25 12:30 Proposed Procedures p Screening Colonoscopy - Jeremi Willis MD Date/Time: 07/06/25 11:57 Surgeon: Jeremi Willis MD Pre Op Diagnosis: Family history of malignant neoplasm of digestive Patient Data Age: 69 Gender: M Height: 1.75 m Weight: 98.2 kg Last Vital Signs Temp 36.5 C 07/06/25 11:23 Pulse 95 07/06/25 11:23 Resp 19 07/06/25 11:23 BP 168/82 H 07/06/25 11:23 Pulse Ox 97 07/06/25 11:23 O2 Del Method Room Air 07/06/25 11:23 Allergies Allergy/AdvReac Type Severity Reaction Status Date / Time amlodipine Allergy Unknown Rash Verified 07/06/25 11:21 Home Medications ?Medication ?Instructions ?Recorded ?Confirmed ?Type atorvastatin 40 mg tablet 40 mg PO DAILY #90 tabs 05/20/25 07/06/25 Rx nifedipine 90 mg tablet,extended 90 mg PO DAILY #90 tabs 05/20/25 07/06/25 Rx release valsartan 320 mg tablet 320 mg PO DAILY #90 tabs 05/20/25 07/06/25 Rx Patient hx anesthesia problems: none Family hx anesthesia problems: none Results Review: All pre-operative results and documents have been reviewed as part of the pre-operative evaluation. [facility] Past Medical History Medical History Prostate cancer s/p prostatectomy & radiation Obesity Abdominal hernia Internal hemorrhoids Hypertension Hyperlipidemia Colon polyps Surgical History Surgical History History of colonoscopy Hx of prostatectomy History of prostatectomy S/P rotator cuff repair Family History Family History Sibling Carcinoma of colon Family history of coronary artery disease Father Malignant neoplasm of prostate Carcinoma of colon Mother Family history of coronary artery disease Other Cerebrovascular accident Family history of arthritis Family history of heart disease in male family member before age 55 Social History Social History Smoking status: Never smoker Tobacco type: cigarettes Second hand tobacco smoke exposure: Yes Alcohol intake: current Drinks per week: 3 Substance use: never Substance use type: does not use Living arrangements: with family Occupation/Education: occupation Gender identity (if verbalized by the patient): Male Sexual Orientation (if Verbalized by the Patient): Straight or Heterosexual Spiritual care concerns: No Anes - Eval Final PreProcedure Day of Procedure 07/06/25 11:57 Patient weight: obese Heart: regular rate and rhythm Lungs: clear to auscultation Airway: Mallampati scale class II Neurological: alert and oriented Last oral intake: >/= 8 hours ASA classification: III Emergent: no Anesthetic plan: proceed Anesthesia type and monitoring: general GIVS and standard monitoring Results Review: All pre-operative results and documents have been reviewed as part of the pre-operative evaluation. Informed Consent: The patient's anesthetic plan and its attendant risks and benefits were discussed with the patient/family/POA. Questions were solicited and answers provided to the satisfaction of the patient/family/POA.
--- NOTE | 2025-07-06 12:33 | PM.HPGS ---
History of Present Illness History of Present Illness Consent: Risks, benefits, and alternatives have been discussed and questions answered. Patient agrees to proceed with procedure. Chief complaint: Family history of malignant neoplasm of digestive Narrative: Rayray Wilder is a 69 year old male here for colonoscopy, last one 2021, father and brother had colon cancer Review of Systems Review of Systems: All systems reviewed & are unremarkable except as noted in HPI and below PMFSH Past Medical History Medical History Prostate cancer s/p prostatectomy & radiation Obesity Abdominal hernia Internal hemorrhoids Hypertension Hyperlipidemia Colon polyps Surgical History Surgical History History of colonoscopy Hx of prostatectomy History of prostatectomy S/P rotator cuff repair Family History Family History Sibling Carcinoma of colon Family history of coronary artery disease Father Malignant neoplasm of prostate Carcinoma of colon Mother Family history of coronary artery disease Other Cerebrovascular accident Family history of arthritis Family history of heart disease in male family member before age 55 Social History Social History Smoking status: Never smoker Tobacco type: cigarettes Second hand tobacco smoke exposure: Yes Alcohol intake: current Drinks per week: 3 Substance use: never Substance use type: does not use Living arrangements: with family Occupation/Education: occupation Gender identity (if verbalized by the patient): Male Sexual Orientation (if Verbalized by the Patient): Straight or Heterosexual Spiritual care concerns: No Meds Home Medications and Allergies Home Medications ?Medication ?Instructions ?Recorded ?Confirmed ?Type atorvastatin 40 mg tablet 40 mg PO DAILY #90 tabs 05/20/25 07/06/25 Rx nifedipine 90 mg tablet,extended 90 mg PO DAILY #90 tabs 05/20/25 07/06/25 Rx release valsartan 320 mg tablet 320 mg PO DAILY #90 tabs 05/20/25 07/06/25 Rx Allergies Allergy/AdvReac Type Severity Reaction Status Date / Time amlodipine Allergy Unknown Rash Verified 07/06/25 11:21 Vital Signs Vital Signs - 24 hr 07/06/25 11:23 Temperature 97.7 F Pulse Rate 95 Respiratory Rate 19 Blood Pressure 168/82 H Pulse Oximetry 97 Oxygen Delivery Room Air Exam Const: General: comfortable and no acute distress HENMT: Face/Nose/Sinus: Normal nares present Eyes: General: appearance normal, both eyes and all related structures Resp: Auscultation: clear to auscultation bilaterally Cardio: Rate: regular rate Rhythm: regular rhythm GI: Inspection: non-distended GI Palp: Yes Soft to palpation Skin: General skin exam: normal color Extrem: General: normal to inspection Psych: Mental Status: mental status grossly normal Assessment and Plan Assessment and plan (1) Family hx of colon cancer: Code(s): Z80.0 - Family history of malignant neoplasm of digestive organs Status: Acute Assessment and Plan: colonoscopy (2) Colon polyps: Code(s): K63.5 - Polyp of colon Status: Acute
--- NOTE | 2025-07-06 12:46 | S_PTH ---
PATIENT: Rayray Wilder LOC: [facility] Kim#:[id number] AGE/SX: 69/M ROOM: RE07/06/[address]: Jeremi Willis MD : 1955 BED: DIS: 07/06/2025 SPEC #: [id number] RECD: 07/06/25 12:59 STATUS: ISSA RETaqueria #: [id number] FILI: 07/06/25 12:[address]: Jeremi Willis DEPT: [facility] Surgical RECD BY: Surinder Covarrubias ENTERED: 07/06/25 13:00 SP TYPE: Surgical OTHR DR: Yung Man MD Tissues: A - Colon Polypectomy B - Colon Polypectomy Procedures: Hematoxylin and Eosin Stain Gross and Microscopic Level 4
[2025-07-06 12:49] VITALS: BP 116/68; PULSE 70; RESP 17; O2SAT 96
[2025-07-06 12:59] VITALS: BP 136/77; PULSE 69; RESP 17; O2SAT 100
[2025-07-06 13:09] VITALS: BP 156/81; PULSE 73; RESP 19; O2SAT 100
== END 2025-07-06 13:19 | disposition home or self-care (01) ==
PROVIDERS: PCP Family Medicine; Referring Provider Physician Assistant; Visit Provider Internal Medicine Gastroenterology
PROC: 0DJD8ZZ Inspection of Lower Intestinal Tract, Via Natural or Artificial Opening Endoscopic (ICD-10-PCS; CPT 45378; principal; 2025-07-06 12:30)
DX: Z12.11 Encounter for screening for malignant neoplasm of colon (principal); D12.3 Benign neoplasm of transverse colon; K63.5 Polyp of colon; K57.30 Diverticulosis of large intestine without perforation or abscess without bleeding; K64.8 Other hemorrhoids; Z80.0 Family history of malignant neoplasm of digestive organs; E66.9 Obesity, unspecified; Z68.32 Body mass index [BMI] 32.0-32.9, adult
CPT/HCPCS: 45385; 88305; J2003; J2704; J7120